=== PATIENT | female | born 1955 | race Caucasian/White ===

== ENCOUNTER 2023-05-29 06:32 | Day surgery (SDC) | payer MEDICARE, OTHER ==
[2023-05-29] MEDS ORDERED: Sodium Chloride 0.9% 10 ML Syringe FLUSH PRN (07:00)
== END 2023-05-29 08:30 | disposition home or self-care (01) ==
LOC: JP.SDS 06:32
PROVIDERS: ATTEND Ophthalmology
DX: E11.36 Type 2 diabetes mellitus with diabetic cataract (principal); K21.9 Gastro-esophageal reflux disease without esophagitis
CPT/HCPCS: 66984; 82947; V2632

== ENCOUNTER 2023-07-22 07:45 | Day surgery (SDC) | payer MEDICARE, OTHER ==
[2023-07-22] MEDS ORDERED: fentaNYL 50 MCG/ML SDV ONE (08:26)
[2023-07-22] MEDS ORDERED: Midazolam 1 MG/ML 2 ML SDV ONE (08:26)
[2023-07-22] MEDS ORDERED: Propofol 200 MG/20 ML SDV ONE ×2 (08:26→09:52)
[2023-07-22] MEDS: Lactated Ringers 1,000 ML IV SCH (08:30)
== END 2023-07-22 11:15 | disposition home or self-care (01) ==
LOC: JP.SDS 07:45
PROVIDERS: ATTEND Family Medicine
DX: Z12.11 Encounter for screening for malignant neoplasm of colon (principal); D12.4 Benign neoplasm of descending colon; D12.3 Benign neoplasm of transverse colon; K62.1 Rectal polyp; I10 Essential (primary) hypertension; E78.5 Hyperlipidemia, unspecified; E66.9 Obesity, unspecified; E11.9 Type 2 diabetes mellitus without complications; K21.9 Gastro-esophageal reflux disease without esophagitis; F17.210 Nicotine dependence, cigarettes, uncomplicated; Z88.8 Allergy status to other drugs, medicaments and biological substances; Z86.010 Personal history of colon polyps; Z79.899 Other long term (current) drug therapy; Z79.82 Long term (current) use of aspirin; Z79.84 Long term (current) use of oral hypoglycemic drugs
CPT/HCPCS: 45380; 88305; J2250; J2704; J3010; J7120

== ENCOUNTER 2024-07-19 11:17 | Emergency (ER) | payer MEDICARE, OTHER ==
[2024-07-19 11:40] LABS: BASOPHILS ABSOLUTE AUTO 0.05 K/uL (0.00-0.10); BASOPHILS PERCENT AUTO 0.7 % (0.1-1.3); EOSINOPHILS ABSOLUTE AUTO 0.23 K/uL (0.00-0.40); EOSINOPHILS PERCENT AUTO 3.2 % (0.0-5.4); HEMATOCRIT 21.8 % (34.3-46.0); IMMATURE GRAN ABSOLUTE AUTO 0.03 K/uL (0.00-0.23); IMMATURE GRAN PERCENT AUTO 0.4 % (0.0-0.7); LYMPHOCYTES PERCENT AUTO 12.6 % (11.4-47.7); MEAN CORPUSCULAR HEMOGLOBIN 18.1 pg (31.6-35.5); MEAN CORPUSCULAR HGB CONC 26.1 g/dL (31.6-35.5); MEAN CORPUSCULAR VOLUME 69.2 fL (81.4-99.0); MONOCYTES ABSOLUTE AUTO 0.66 K/uL (0.20-0.90); MONOCYTES PERCENT AUTO 9.3 % (3.3-12.6); NEUTROPHILS ABSOLUTE AUTO 5.26 K/uL (1.0-7.6); NEUTROPHILS PERCENT AUTO 73.8 % (40.0-78.1); PLATELET COUNT,PLT 413 K/uL (130-375); RED BLOOD CELL COUNT 3.15 M/uL (3.77-5.24); WHITE BLOOD CELL COUNT,WBC 7.1 K/uL (3.2-11.0)
[2024-07-19 11:47] LABS: HEMOGLOBIN 5.7 g/dL (11.2-15.5)
[2024-07-19 12:04] LABS: ALANINE AMINOTRANSFERASE,ALT 23 U/L (12-78); ALBUMIN 3.8 g/dL (3.4-5.0); ALKALINE PHOSPHATASE 80 U/L (46-116); ANION GAP 14.5 mmol/L (5.0-14.0); ASPARTATE AMNIOTRANSFERASE,AST 14 U/L (15-37); BILIRUBIN TOTAL 0.5 mg/dL (0.2-1.0); BLOOD UREA NITROGEN,BUN 11 mg/dL (7-18); CALCIUM 9.6 mg/dL (8.5-10.1); CARBON DIOXIDE,CO2 23 mmol/L (21-32); CHLORIDE,CL 103 mmol/L (100-108); CREATININE 1.1 mg/dL (0.6-1.0); EST CRCL DRUG DOSING (CG) 38.18 mL/min; ESTIMATED GFR 54 mL/min (>60); GLUCOSE RANDOM 148 mg/dL (74-106); POTASSIUM,K 4.5 mmol/L (3.6-5.2); PROTEIN TOTAL,TP 7.5 g/dL (6.4-8.2); SODIUM,NA 140 mmol/L (140-148)
[2024-07-19 13:22] LABS: APPEARANCE,URINE CLEAR (CLEAR); BILIRUBIN,URINE NEGATIVE (NEGATIVE); COLOR,URINE YELLOW (YELLOW); GLUCOSE,URINE NEGATIVE (NEGATIVE); KETONES,URINE NEGATIVE (NEGATIVE); LEUKOCYTE ESTERASE,URINE TRACE (NEGATIVE); NITRITE,URINE NEGATIVE (NEGATIVE); OCCULT BLOOD,URINE NEGATIVE (NEGATIVE); PROTEIN,URINE NEGATIVE (NEGATIVE); UROBILINOGEN,URINE 0.2 EU/dL (0.2-1.0)
[2024-07-19 13:27] LABS: AMORPHOUS SEDIMENT,URINE FEW; BACTERIA,URINE MANY; EPITHELIAL CELLS,URINE MODERATE; MUCUS,URINE NOT SEEN; RBC,URINE NOT SEEN (0-5); WBC,URINE 0-5 (0-5)
[2024-07-19] MEDS: Pantoprazole 40 MG Vial IVPUSH SCH (14:37)
== END 2024-07-19 17:50 | disposition home or self-care (01) ==
LOC: JP.ED 11:17
DX: K52.9 Noninfective gastroenteritis and colitis, unspecified (principal); K92.2 Gastrointestinal hemorrhage, unspecified; I10 Essential (primary) hypertension; E78.00 Pure hypercholesterolemia, unspecified; K21.9 Gastro-esophageal reflux disease without esophagitis; E11.9 Type 2 diabetes mellitus without complications; E66.9 Obesity, unspecified; Z88.8 Allergy status to other drugs, medicaments and biological substances; Z79.82 Long term (current) use of aspirin; Z79.899 Other long term (current) drug therapy; Z68.28 Body mass index [BMI] 28.0-28.9, adult; Z90.49 Acquired absence of other specified parts of digestive tract; Z90.710 Acquired absence of both cervix and uterus
CPT/HCPCS: 36415; 36430; 80053; 81001; 85025; 86850; 86900; 86901; 86920; 86922; 93005; 96374; 99285; J2470; P9016

== ENCOUNTER 2024-07-23 06:40 | Day surgery (SDC) | payer MEDICARE, OTHER ==
[2024-07-23] MEDS ORDERED: Propofol 200 MG/20 ML SDV ONE (07:04)
[2024-07-23] MEDS ORDERED: fentaNYL 100 MCG/2 ML SDV ONE (07:04)
[2024-07-23 07:16] LABS: HEMATOCRIT 30.3 % (34.3-46.0); HEMOGLOBIN 8.6 g/dL (11.2-15.5); MEAN CORPUSCULAR HEMOGLOBIN 21.2 pg (31.6-35.5); MEAN CORPUSCULAR HGB CONC 28.4 g/dL (31.6-35.5); MEAN CORPUSCULAR VOLUME 74.8 fL (81.4-99.0); WHITE BLOOD CELL COUNT,WBC 5.4 K/uL (3.2-11.0)
[2024-07-23] MEDS: Lactated Ringers 1,000 ML IV SCH (07:23)
[2024-07-23 07:28] LABS: RED BLOOD CELL COUNT 4.05 M/uL (3.77-5.24)
== END 2024-07-23 08:35 | disposition home or self-care (01) ==
LOC: JP.SDS 06:40
PROVIDERS: ATTEND Surgery
DX: D64.9 Anemia, unspecified (principal); K44.9 Diaphragmatic hernia without obstruction or gangrene; K92.2 Gastrointestinal hemorrhage, unspecified; I10 Essential (primary) hypertension
CPT/HCPCS: 00731; 36415; 43239; 85027; 88305; J2704; J3010; J7120

== ENCOUNTER 2024-07-30 06:40 | Day surgery (SDC) | payer MEDICARE, OTHER ==
[2024-07-30] MEDS: Lactated Ringers 1,000 ML IV SCH (06:55)
[2024-07-30 07:08] LABS: HEMATOCRIT 29.3 % (34.3-46.0); HEMOGLOBIN 8.4 g/dL (11.2-15.5); MEAN CORPUSCULAR HEMOGLOBIN 21.1 pg (31.6-35.5); MEAN CORPUSCULAR HGB CONC 28.7 g/dL (31.6-35.5); MEAN CORPUSCULAR VOLUME 73.4 fL (81.4-99.0); WHITE BLOOD CELL COUNT,WBC 4.4 K/uL (3.2-11.0)
[2024-07-30] MEDS ORDERED: Propofol 200 MG/20 ML SDV ONE (07:15)
[2024-07-30] MEDS ORDERED: fentaNYL 100 MCG/2 ML SDV ONE (07:15)
[2024-07-30 07:18] LABS: RED BLOOD CELL COUNT 3.99 M/uL (3.77-5.24)
== END 2024-07-30 09:00 | disposition home or self-care (01) ==
LOC: JP.SDS 06:40
PROVIDERS: ATTEND Surgery
DX: D64.9 Anemia, unspecified (principal); D12.4 Benign neoplasm of descending colon; K57.30 Diverticulosis of large intestine without perforation or abscess without bleeding; I10 Essential (primary) hypertension; K21.9 Gastro-esophageal reflux disease without esophagitis; E11.9 Type 2 diabetes mellitus without complications
CPT/HCPCS: 00811; 36415; 45380; 85027; 88305; J2704; J3010; J7120